=== PATIENT | female | born 1985 | race African-American/Black ===

== ENCOUNTER 2019-04-29 01:35 | Emergency (ER) | payer OTHER ==
[~2019-04-29] VITALS: Ht 170.2 cm; Wt 99.1 kg
[2019-04-29 01:45] VITALS: Ht 170.2 cm; Wt 99.1 kg
[2019-04-29 02:29] VITALS: BP 122/88
== END 2019-04-29 02:30 | disposition home or self-care (01) ==
LOC: ED 01:35
DX: B34.9 Viral infection, unspecified (principal)